=== PATIENT | female | born 1965 | race Caucasian/White ===

== ENCOUNTER 2016-12-11 02:13 | Emergency (ER) | payer BC ==
[2016-12-11 02:35] LABS: BASO # 0.1 10_X3_uL (0.0-0.1); EOS # 0.2 10_X3_uL (0.0-0.4); EOS % 3.4 % (0.7-5.8); GRAN # 2.7 10_X3_uL (1.6-6.1); GRAN % 43.3 % (34.0-71.1); HEMATOCRIT 37.4 % (34-45); HEMOGLOBIN 12.4 g/dL (11.2-15.7); LYMPH # 2.8 10_X3_uL (1.2-3.7); LYMPH % 44.9 % (19.3-51.7); MEAN CORPUSCULAR HEMOGLOBIN 32.8 pg (27.0-33.0); MEAN CORPUSCULAR HGB CONC 33.2 g/dL (32.0-36.0); MEAN CORPUSCULAR VOLUME 98.9 fL (79-95); MONO # 0.5 10_X3_uL (0.2-0.9); MONO % 7.4 % (4.7-12.5); PLATELET COUNT 227 x10_3/uL (182-369); RED BLOOD COUNT 3.78 x10_6/uL (3.9-5.2); RED CELL DISTRIBUTION WIDTH 13.4 % (11.7-14.4); WHITE BLOOD COUNT 6.2 x10_3/uL (4.0-10.0)
== END 2016-12-11 12:34 | disposition home or self-care (01) ==
LOC: ER 02:13
PROVIDERS: General Practice
DX: S39.013A Strain of muscle, fascia and tendon of pelvis, initial encounter (principal); M25.551 Pain in right hip; R10.9 Unspecified abdominal pain; F17.210 Nicotine dependence, cigarettes, uncomplicated; Z88.5 Allergy status to narcotic agent; M79.604 Pain in right leg
CPT/HCPCS: 36415; 73502; 73560; 85025; 85379; 93971; 96372; 99284-25